=== PATIENT | female | born 1955 | race Caucasian/White ===

== ENCOUNTER 2018-07-05 05:23 | Inpatient (IN) | payer MEDICARE, OTHER ==
[2018-07-05] MEDS ORDERED: LACTATED RINGERS 1,000 ML IV ONE (06:01)
[2018-07-05] MEDS ORDERED: LEVALBUTEROL HCL 1.25 MG/3 ML AMPUL.NEB NEB ONE (06:01)
[2018-07-05] MEDS ORDERED: FAMOTIDINE 20 MG/2 ML VIAL ONE ×2 (06:02→08:48)
[2018-07-05] MEDS ORDERED: SCOPOLAMINE HYDROBROMIDE 1.5MG/72HR PATCH TD ONE ×2 (06:03→08:48)
[2018-07-05] MEDS ORDERED: ENOXAPARIN SODIUM 40 MG/0.4 ML DISP.SYRIN SQ ONE (07:07)
[2018-07-05] MEDS ORDERED: ONDANSETRON HCL/PF 4 MG/ 2ML VIAL ONE (08:48)
[2018-07-05] MEDS ORDERED: DEXAMETHASONE SOD PHOS 4 MG/ML VIAL ONE (08:48)
[2018-07-05] MEDS ORDERED: ACETAMINOPHEN 1,000 MG/100 ML INJ IV ONE (08:48)
[2018-07-05] MEDS ORDERED: DESFLURANE 240 ML LIQUID IH ONE (08:48)
[2018-07-05] MEDS ORDERED: LACTATED RINGERS 1,000 ML IV.SOLN IV ONE ×2 (08:48)
[2018-07-05] MEDS ORDERED: diphenhydrAMINE HCL 50 MG/ML VIAL ONE (08:48)
[2018-07-05] MEDS ORDERED: ROCURONIUM BROMIDE 10 MG/ML 5ML VIAL ONE (08:48)
[2018-07-05] MEDS ORDERED: SUGAMMADEX SODIUM 200 MG/2 ML VIAL IV ONE (08:48)
[2018-07-05] MEDS ORDERED: PROPOFOL 200 MG/20 ML VIAL IV ONE (08:48)
[2018-07-05] MEDS ORDERED: ceFAZolin SODIUM 1 GM VIAL ONE (08:48)
[2018-07-05] MEDS ORDERED: HYDROmorphone HCL/PF 2 MG/ML VIAL ONE (09:12)
[2018-07-05] MEDS ORDERED: LEVALBUTEROL HCL 1.25 MG/3 ML AMPUL.NEB NEB PRN (09:47)
[2018-07-05] MEDS ORDERED: ONDANSETRON HCL/PF 4 MG/ 2ML VIAL IVP PRN (09:47)
[2018-07-05] MEDS ORDERED: KETOROLAC TROMETHAMINE 30 MG/1ML VIAL IVP PRN ×2 (09:47→22:00)
[2018-07-05] MEDS ORDERED: PROMETHAZINE HCL 25 MG in 0.9 % SODIUM CHLORIDE 50 ML IV PRN (09:47)
[2018-07-05] MEDS ORDERED: MORPHINE SULFATE 10 MG/ML VIAL IVP PRN (09:47)
[2018-07-05] MEDS ORDERED: MIDAZOLAM HCL 2 MG/2 ML VIAL ONE (10:11)
[2018-07-05] MEDS ORDERED: fentaNYL CITRATE/PF 100 MCG/2 ML INJ. ONE (10:11)
--- NOTE | 2018-07-05 10:14 | History and Physical Report ---
History of Present Illnes - History of Present Illness Reason for Visit: S/P Gastric Sleeve History of Present Illness: Patient is a 63-year-old white female who has tried multiple diets and exercise programs with no success. Patient was cleared by cardiology with EF 65% and cleared by Pulmonology. Patient and surgeon decided to proceed with gastric sleeve procedure. Procedure went well with no complications-patient will be admitted and monitored s/p surgical intervention. - Past Medical History Cardiac: HTN, Hyperlipidemia Pulmonary: Asthma, Sleep Apnea Gastrointestinal: GERD Musculoskeletal: Chronic low back pain, Osteoarthritis Endocrine: obesity Grav: 2 Para: 2 - Past Surgical History Past Surgical History: (x2), Hysterectomy, Other (Ankle surgery), Tonsillectomy, Other (hysteroscopy for cyst removal) - Past Family History Mother Family History: DM, Thyroid Disfunction, Other (asthma) Father Family History: DM, Hyperlipidemia, Hypertension - Past Social History Smoke: No Alcohol: None Drugs: None Lives: With Family Domestic Violence: Negative - Health Maintenance Health Maintenance: Influenza Vaccine, Pneumococcal Vaccine, Mammogram, Colonoscopy Influenza Vaccine: Current for this Influenza Season Pneumonia Vaccine: Yes Resuscitation Status: Resusciation Status Resuscitation Status Full Code Review of Systems - Review of Systems Constitutional: Weakness Eyes: negative: pain, vision change ENT: negative: Ear Pain, Nose Pain, Throat Pain Respiratory: negative: Shortness of Breath, Wheezing Cardiovascular: negative: Chest Pain, Edema Gastrointestinal: Nausea, Abdominal Pain (s/p gastric sleeve) Genitourinary: negative: Dysuria Musculoskeletal: Back Pain Skin: negative: Rash Neurological: Weakness - Medications/Allergies Allergies/Adverse Reactions: Allergies Allergy/AdvReac Type Severity Reaction Status Date / Time aspirin Allergy Verified 07/05/18 09:47 strawberry Allergy Verified 07/05/18 09:47 Sulfa (Sulfonamide Allergy Verified 07/05/18 09:47 Antibiotics) Home Medications: Home Medications Atorvastatin Calcium 10 mg PO DAILY 07/05/18 Carvedilol [Coreg] 25 mg PO BID 07/05/18 Certirizine 10 mg PO DAILY 07/05/18 Fluticasone/Vilanterol [Breo Ellipta 100-25 Mcg INH] 1 each IH DAILY 07/05/18 Hydrochlorothiazide 25 mg PO DAILY 07/05/18 Omeprazole 20 mg PO BID 07/05/18 amLODIPine BESYLATE [Norvasc] 5 mg PO 00 07/05/18 Current Inpatient Medications: Current Inpatient Medications Cefazolin Sodium/Dextrose (Cefazolin 1 G/50 Ml-Dextrose) 1 gm IV Q8H [facility] Stop: 07/05/18 23:31 Enoxaparin Sodium (Lovenox) 40 mg SQ QD [facility] Stop: 07/20/18 09:59 Famotidine (Pepcid) 20 mg IVP BID [facility] Stop: 07/09/18 20:59 Sodium Chloride (Normal Saline) 1,000 mls @ 150 mls/hr IV Q8H [facility] Promethazine HCl 25 mg/ Sodium (Chloride) 51 mls @ 600 mls/hr IV Q6 PRN PRN Reason: Nausea / Vomiting Stop: 07/09/18 09:46 Ketorolac Tromethamine (Toradol) 15 mg IVP Q6 PRN PRN Reason: For Mild Pain Stop: 07/09/18 09:46 Levalbuterol HCl (Xopenex) 1.25 mg NEB Q4 PRN PRN Reason: SOA, Dyspnea, or Wheezing Stop: 07/09/18 09:46 Morphine Sulfate (Morphine Sulfate) 4 mg IVP Q4 PRN PRN Reason: Severe Pain-If unable to do PO Ondansetron HCl (Zofran 4 Mg/2 Ml) 4 mg IVP Q6H PRN PRN Reason: Nausea / Vomiting Stop: 07/09/18 09:46 Exam - Exam General: Alert, Oriented to Person, Oriented to Place, Oriented to Time, Cooperative, Mild distress HEENT: Atraumatic, PERRLA, Mouth Mucous membr. moist/[place], Nose Mucous membr. moist/[place] Neck: Normal Range of Motion Lungs: Clear to auscultation, Normal air movement, Speaks full Sentences Cardiovascular: Regular rate, Normal S1, Normal S2 Abdomen: Soft, Decreased Bowel Sounds Integumentary: Warm, Dry, Pale Extremities: No cyanosis, No edema, Normal pulses, No tenderness/swelling Neurological: Normal gait (pt has ambulated), Normal speech, Strength Equal Bilat, Sensation intact Psych/Mental Status: Mental status NL, Mood NL Assessment/Plan - Assessment/Plan (1) S/P gastric surgery Status: Acute Current Visit: Yes Assessment: LCTA, legs are without pain/tenderness, HRRR, incision site dressings are dry & intact x 5. Patient is experiencing some nausea with dry heaves- moderate abdominal discomfort Plan: Plan is to have patient up and walking frequently, SCDs while in bed, and Lovenox to prevent DVTs, using IS frequently to prevent resp illness, PPI IV, IVF until patient can tolerate oral, will monitor incision sites for infection, will monitor VS, lungs, and bowel (2) Morbid obesity due to excess calories Status: Acute Current Visit: Yes Plan: S/P gastric sleeve (3) Depression Status: Acute Current Visit: Yes Qualifiers: Depression Type: major depressive disorder Major depression recurrence: unspecified whether recurrent Active/Remission status: remission status unspecified Qualified Code(s): F32.9 - Major depressive disorder, single episode, unspecified Assessment: Patient is not on any medication-states depression is stable Plan: Will monitor (4) Asthma Status: Acute Current Visit: Yes Qualifiers: Asthma severity: mild Asthma persistence: intermittent Asthma complicat ion type: unspecified Qualified Code(s): J45.20 - Mild intermittent asthma, uncomplicated Assessment: Will monitor resp. status- LCTA Plan: Will continue patients Breo (5) Hypertension Status: Acute Current Visit: Yes Qualifiers: Hypertension type: essential hypertension Qualified Code(s): I10 - Essential (primary) hypertension Assessment: Will monitor blood pressure closely Plan: Will check blood pressure regularly- will hold BP meds at this time (6) Hyperlipidemia Status: Acute Current Visit: Yes Qualifiers: Hyperlipidemia type: pure hypercholesterolemia Qualified Code(s): E78.00 - Pure hypercholesterolemia, unspecified; E78.0 - Pure hypercholesterolemia Assessment: Stable on home meds Plan: Will hold meds at this time (7) Obstructive sleep apnea Status: Acute Current Visit: Yes Assessment: Stable with home CPAP (8) Arthritis Status: Acute Current Visit: Yes Assessment: Stable Plan: Will have patient up and walking VTE Assessment - RISK FACTOR SCORE VTE RISK FACTOR SCORES: AGE OVER 60 YEARS, OBESITY, MAJOR SURGERY/ANESTHESIA TIME > 1 HOUR (lovenox daily, frequent ambulation, SCDs while in bed)
[2018-07-05] MEDS: 0.9 % SODIUM CHLORIDE 1,000 ML IV SCH ×2 (11:06→17:27)
[2018-07-05] MEDS: VILANTEROL IH SCH (14:50)
[2018-07-05] MEDS: FLUTICASONE IH SCH (14:50)
[2018-07-05 14:59] VITALS: BMI 63.1
[2018-07-05] MEDS: CEFAZOLIN SODIUM/DEXTROSE,ISO 1 GM/50 ML PIGGYBACK IV SCH (15:09)
[2018-07-05] MEDS: HYDROcodone /APAP 10/325 1 EACH TABLET PO PRN ×2 (17:39→21:43)
[2018-07-05] MEDS: FAMOTIDINE 20 MG/2 ML VIAL IVP SCH (21:39)
[2018-07-06] MEDS: CEFAZOLIN SODIUM/DEXTROSE,ISO 1 GM/50 ML PIGGYBACK IV SCH (00:11)
[2018-07-06] MEDS: 0.9 % SODIUM CHLORIDE 1,000 ML IV SCH ×4 (00:12→20:55)
[2018-07-06] MEDS ORDERED: MORPHINE SULFATE 5 MG/ML ML IV PRN (00:23)
--- NOTE | 2018-07-06 08:12 | Inpatient Progress Note ---
Subjective - Required Recertification Statement I anticipate X number of days because-include discharge plan: 1 - Review of Systems Subjective: Patient is doing well. Breathing is good. Mild pain and nausea. Walking going well. Objective - Exam Vitals and I&O: Vital Signs Temp 98.2 F 07/06/18 06:00 Pulse 68 07/06/18 06:00 Resp 20 07/06/18 06:00 BP 143/76 07/06/18 06:00 Pulse Ox 94 07/06/18 06:00 Intake & Output 07/05/18 07/05/18 07/06/18 11:59 23:59 11:59 Intake Total 450 1020 1440 Output Total 300 600 350 Balance 357 535 9298 Weight 172 kg Intake: IV 509 031 8710 Right Wrist 739 563 8946 Oral 120 90 Output: Urine 300 600 350 Other: Voiding Method Toilet Toilet Toilet # Voids 1 General: Alert, Oriented to Person, Oriented to Place, Oriented to Time, Cooperative, No acute distress Lungs: Clear to auscultation, Normal air movement, Speaks full Sentences Cardiovascular: Regular rate Abdomen: Normal bowel sounds, Soft. No: No tenderness (Bandages C/D/I; + BS) Assessment/Plan - Assessment/Plan (1) Asthma Status: Acute Current Visit: Yes Qualifiers: Asthma severity: mild Asthma persistence: intermittent Asthma complication type: unspecified Qualified Code(s): J45.20 - Mild intermittent asthma, uncomplicated Plan: Start patient's own Breo to prevent problems. (2) Hypertension Status: Acute Current Visit: Yes Qualifiers: Hypertension type: essential hypertension Qualified Code(s): I10 - Essential (primary) hypertension Plan: BP 150's. Will start back norvasc. (3) S/P gastric surgery Status: Acute Current Visit: Yes
[2018-07-06] MEDS: HYDROcodone /APAP 10/325 1 EACH TABLET PO PRN (08:29)
[2018-07-06] MEDS: amLODIPine BESYLATE 5 MG TABLET PO SCH (09:32)
[2018-07-06] MEDS: PATIENT OWN MED 1 EACH EACH INH SCH (09:33)
[2018-07-06] MEDS: FLUTICASONE IH SCH (09:39)
[2018-07-06] MEDS: VILANTEROL IH SCH (09:39)
[2018-07-06] MEDS ORDERED: 0.9 % SODIUM CHLORIDE 50 ML IV ONE (09:50)
[2018-07-06] MEDS ORDERED: ENOXAPARIN SODIUM 40 MG/0.4 ML DISP.SYRIN SQ SCH (10:00)
[2018-07-06] MEDS: FAMOTIDINE 20 MG/2 ML VIAL IVP SCH ×2 (10:06→20:56)
[2018-07-07] MEDS: 0.9 % SODIUM CHLORIDE 1,000 ML IV SCH (02:31)
[2018-07-07 08:07] VITALS: BP 134/83
[2018-07-07] MEDS: amLODIPine BESYLATE 5 MG TABLET PO SCH (08:47)
[2018-07-07] MEDS: PATIENT OWN MED 1 EACH EACH INH SCH (08:47)
[2018-07-07] MEDS: FAMOTIDINE 20 MG/2 ML VIAL IVP SCH (09:06)
--- NOTE | 2018-07-07 12:44 | Discharge Summary ---
Discharge Summary - Discharge Sumary History of Present Illness: Patient is a 63-year-old white female who has tried multiple diets and exercise programs with no success. Patient was cleared by cardiology with EF 65% and cleared by Pulmonology. Patient and surgeon decided to proceed with gastric sleeve procedure. Procedure went well with no complications-patient will be admitted and monitored s/p surgical intervention. Condition at Discharge: Stable Home Medications: Ambulatory Orders Medication Instructions Recorded Atorvastatin Calcium 10 mg PO DAILY 07/05/18 Certirizine 10 mg PO DAILY 07/05/18 Fluticasone/Vilanterol [Breo 1 each IH DAILY 07/05/18 Ellipta 100-25 Mcg INH] Omeprazole 20 mg PO BID 07/05/18 amLODIPine BESYLATE [Norvasc] 5 mg PO 0900 07/05/18 Consultations this Visit: None Procedures this Visit: Other (s/p sleeve gastrectomy) Allergies/Adverse Reactions: Allergies Allergy/AdvReac Type Severity Reaction Status Date / Time aspirin Allergy Verified 07/05/18 09:47 strawberry Allergy Verified 07/05/18 09:47 Sulfa (Sulfonamide Allergy Verified 07/05/18 09:47 Antibiotics) Hospital Course: Patient did well post-op sleeve gastrectomy. Ambulation, IS, SCD, lovenox utilized. Patient has h/o HTN - BP trended up off meds so amlodipine restarted.. Will hold HCTZ and carvedilol on D/C. Patient to monitor BP as outpatient and take to PCP with her. Discharged home in good condition.
== END 2018-07-07 10:40 | disposition home or self-care (01) | DRG 621 ==
LOC: OPSURG 05:23 → SOUTH 09:42
PROVIDERS: ADMIT Nurse Practitioner Family; ATTEND Nurse Practitioner Family
DX: E66.01 Morbid (severe) obesity due to excess calories (principal); Z68.44 Body mass index [BMI] 60.0-69.9, adult; I10 Essential (primary) hypertension; E78.00 Pure hypercholesterolemia, unspecified; G47.33 Obstructive sleep apnea (adult) (pediatric); J45.20 Mild intermittent asthma, uncomplicated; F32.9 Major depressive disorder, single episode, unspecified; M19.90 Unspecified osteoarthritis, unspecified site
CPT/HCPCS: 43235; 81025; 99231; 99238; J0690; J1100; J1170; J1200; J1650; J1885; J2250; J2405; J2704; J3010; J7614; 43775; A9270-GY; J7030; J7120